=== PATIENT | female | born 1995 | race Caucasian/White ===

== ENCOUNTER 2017-10-09 05:26 | Inpatient (IN) | payer MEDICAID, OTHER ==
[2017-10-09] MEDS ORDERED: Carboprost Tromethamine 250 MCG/1 ML Amp IM PRN (06:13)
[2017-10-09] MEDS ORDERED: Water For Irrigation,Sterile 1,000 ML Container IRR PRN (06:13)
[2017-10-09] MEDS ORDERED: Sodium Chloride 0.9% 2.5 ML Syringe FLUSH PRN (06:13)
[2017-10-09] MEDS ORDERED: Butorphanol 1 MG/ML SDV IVPUSH PRN (06:13)
[2017-10-09] MEDS ORDERED: Nalbuphine 10 MG/1 ML Vial IVPUSH PRN (06:13)
[2017-10-09] MEDS ORDERED: Methylergonovine 0.2 MG/1 ML Amp IM PRN (06:13)
[2017-10-09] MEDS ORDERED: Lidocaine 1% 50 ML MDV INJECT PRN (06:13)
[2017-10-09] MEDS ORDERED: Misoprostol 200 MCG Tab PO PRN (06:13)
[2017-10-09] MEDS ORDERED: Ampicillin 2 GM in Sodium Chloride 0.9% 100 ML IV STA (06:13)
[2017-10-09] MEDS ORDERED: Sodium Chloride 0.9% 10 ML Syringe FLUSH PRN (06:13)
[2017-10-09] MEDS ORDERED: Lactated Ringers 1,000 ML IV SCH (06:15)
[2017-10-09] MEDS ORDERED: Oxytocin/0.9 % Sodium Chloride 30 UNIT/500 ML BAG IV SCH (06:15)
[2017-10-09] MEDS ORDERED: Ampicillin 2 GM AdvVial IV ONE (06:25)
[2017-10-09] MEDS ORDERED: Sodium Chloride 0.9% 100 ML ONE (06:25)
[2017-10-09] MEDS ORDERED: Ropivacaine HCl/PF 0 ML ONE (06:52)
[2017-10-09] MEDS ORDERED: Ropivacaine 0.2% 2 MG/ML 20 ML SDV ONE (06:52)
[2017-10-09] MEDS ORDERED: fentaNYL 100 MCG/2 ML SDV ONE (06:54)
[2017-10-09] MEDS ORDERED: Oxytocin/0.9 % Sodium Chloride 30 UNIT/500 ML BAG ONE (07:32)
[2017-10-09] MEDS ORDERED: Benzocaine/Menthol 20%-0.5% Spray 78 GM Cannister TOP PRN (08:01)
[2017-10-09] MEDS ORDERED: Acetaminophen 500 MG Tab PO PRN ×2 (08:01)
[2017-10-09] MEDS ORDERED: Lanolin 100% Cream 7 GM Tube TOP PRN (08:01)
[2017-10-09] MEDS ORDERED: Witch Hazel Medicated Pads 40/Jar TOP PRN (08:01)
[2017-10-09] MEDS ORDERED: Docusate Sodium 100 MG Cap PO PRN (08:01)
[2017-10-09] MEDS ORDERED: Ibuprofen 400 MG Tab PO PRN (08:01)
[2017-10-09] MEDS ORDERED: Bisacodyl 10 MG Supp RECTAL PRN (08:01)
--- NOTE | 2017-10-09 09:38 | OR ---
SURGEON: Michelle Euceda MD DATE OF PROCEDURE: 10/09/2017 PREOPERATIVE DIAGNOSES: 1. Intrauterine at 35 weeks and 1 day. 2. premature rupture of membranes. 3. labor. 4. GBS unknown. POSTOPERATIVE DIAGNOSIS: 1. Intrauterine at 35 weeks and 1 day. 2. premature rupture of membranes. 3. labor. 4. GBS unknown. 5. Delivered. PROCEDURE: Spontaneous vaginal delivery. ANESTHESIA: Epidural. ESTIMATED BLOOD LOSS: 100 mL. COMPLICATIONS: None. DISPOSITION: Mother and baby stable in Labor and Delivery room, [facility]. FINDINGS: Male infant, weight 2520 g, scores 9, and 9 at 1 and 5 minutes respectively. Grossly normal placenta with 3-vessel cord. Intact perineum. BRIEF HISTORY: Debbi is a 22-year-old G2, P1 who presents at 35 weeks and 1 day gestation at about 5:30 a.m. to Labor and Delivery with a history of leakage of clear fluid at 1:00 a.m. followed by irregular contractions an hour later. She reports that the contractions became regular about 2 hours afterwards with increased intensity and that she continued to leak clear fluid. She denied vaginal bleeding and reported movements. She was late to care at 32 weeks and also has insufficient care since NOB visit was the only visit she attended.On admission, she was confirmed to be grossly ruptured, aminta every 1-2 minutes, with a category 1 strip. She was 5 cm dilated, 80% effaced, and station -2 and requesting an epidural. She was admitted, received one dose of Ampicillin 2 g for GBS prophylaxis and the GBS swab was obtained. I reexamined her approximately an hour later, she was 6 cm dilated, 90% effaced, station -1, and leaking clear fluid, Cephalic presentation. She was set up for an epidural. After she receiving the epidural bolus dose, she started complaining of increased rectal pressure. She was re-examined and found to be fully dilated at station +3 and then was set up for delivery in modified dorsal lithotomy position. heart tracing remained category 1. DESCRIPTION OF PROCEDURE: She had a spontaneous vaginal delivery of a live male infant in direct occipital anterior position, loose nuchal cord x1, which was easily reduced. With clear fluid at delivery. Anterior and posterior shoulders were delivered without difficulty and the rest of the baby. Baby was vigorous and cried spontaneously at . Baby was delivered onto the maternal abdomen with the nursery nurse attending to the baby. Delayed cord clamping was performed and the cord was subsequently cut by the father of the baby. With delivery of the infant oxytocin infusion, titration was commenced for active management of 3rd stage of labor. Cord blood and gas samples were obtained. Placenta was delivered by controlled cord traction, appeared to be complete and intact. Examination of the perineum revealed no lacerations. Uterine massage was performed. Uterus was found to be well contracted and below the umbilicus. The patient tolerated the procedure well. Sponge, instrument, and needle counts were correct at the end of the delivery. ADUMVIV / MODL /[id number] MTDTiffani
[2017-10-09] MEDS: Ibuprofen 800 MG Tab PO PRN (21:07)
--- NOTE | 2017-10-10 09:00 | PCM.PNPP ---
- General Info Date of Service: 10/10/17 Functional Status: Reports: Pain Controlled, Tolerating Diet, Ambulating, Urinating - Review of Systems General: Denies: Fever, Weakness, Malaise, Chills HEENT: Denies: Headaches Pulmonary: Denies: Shortness of Breath, Cough Cardiovascular: Denies: Chest Pain, Palpitations Gastrointestinal: Denies: Abdominal Pain Genitourinary: Denies: Dysuria, Incontinence, Retention Musculoskeletal: Reports: No Symptoms Skin: Reports: No Symptoms Neurological: Reports: No Symptoms Psychiatric: Reports: No Symptoms - General Info Date of Service: 10/10/17 - Patient Data Vital Signs - Most Recent: Last Vital Signs Temp 36.4 C 10/10/17 02:45 Pulse 80 10/10/17 02:45 Resp 16 10/10/17 02:45 BP 106/54 L 10/10/17 02:45 Pulse Ox 98 10/10/17 02:45 Weight - Most Recent: 170 lb Lab Results - Last 24 Hours: Laboratory Results - last 24 hr 10/10/17 Range/Units 06:19 Hgb 11.3 L (12.0-16.0) g/dL Hct 35.2 L (36.0-46.0) % Med Orders - Current: Current Medications Acetaminophen (Tylenol Extra Strength) 500 mg PO Q4H PRN PRN Reason: Pain Acetaminophen (Tylenol Extra Strength) 1,000 mg PO Q4H PRN PRN Reason: Pain Benzocaine/Menthol (Dermoplast Pain Relief 20%-0.5% [place]) 78 gm TOP ASDIRECTED PRN PRN Reason: Perineal Comfort Measure Last Admin: 10/09/17 21:06 Dose: 1 canister Bisacodyl (Dulcolax) 10 mg RECTAL .ONCE PRN PRN Reason: Constipation Docusate Sodium (Colace) 100 mg PO BID PRN PRN Reason: Constipation Last Admin: 10/09/17 21:07 Dose: 100 mg Emollient Ointment (Lansinoh Hpa) 0 gm TOP ASDIRECTED PRN PRN Reason: Sore Nipples Last Admin: 10/09/17 21:07 Dose: 1 tube Ibuprofen (Motrin) 400 mg PO Q4H PRN PRN Reason: Pain Ibuprofen (Motrin) 800 mg PO Q6H PRN PRN Reason: Pain Last Admin: 10/09/17 21:07 Dose: 800 mg Witch Kari (Tucks) 1 pad TOP ASDIRECTED PRN PRN Reason: comfort care Discontinued Medications Ampicillin Sodium (Ampicillin) Confirm Administered Dose 2 gm IV .STK-MED ONE Stop: 10/09/17 06:26 Butorphanol Tartrate (Stadol) 1 mg IVPUSH Q1H PRN PRN Reason: Pain Carboprost Tromethamine (Hemabate Ds) 250 mcg IM ASDIRECTED PRN PRN Reason: Post Hemorrhage Fentanyl (Sublimaze) Confirm Administered Dose 300 mcg .ROUTE .STK-MED ONE Stop: 10/09/17 06:55 Ampicillin Sodium 2 gm/ Sodium (Chloride) 100 mls @ 200 mls/hr IV ONETIME STA Stop: 10/09/17 06:42 Last Admin: 10/09/17 06:31 Dose: 200 mls/hr Lactated Ringer's (Ringers, Lactated) 1,000 mls @ 150 mls/hr IV ASDIRECTED AVELINO Last Admin: 10/09/17 06:20 Dose: 999 mls/hr Oxytocin/Sodium Chloride (Oxytocin 30 Unit/500 Ml-Ns) 30 unit in 500 mls @ 500 mls/hr IV TITRATE AVELINO Sodium Chloride (Normal Saline) Confirm Administered Dose 100 mls @ as directed .ROUTE .STK-MED ONE Stop: 10/09/17 06:26 Ropivacaine (Naropin 0.2%) Confirm Administered Dose 0 mls @ as directed .ROUTE .STK-MED ONE Stop: 10/09/17 06:53 Oxytocin/Sodium Chloride (Oxytocin 30 Unit/500 Ml-Ns) Confirm Administered Dose 30 unit in 500 mls @ as directed .ROUTE .STK-MED ONE Stop: 10/09/17 07:33 Lidocaine HCl (Xylocaine 1%) 50 ml INJECT .ONCE PRN PRN Reason: Laceration repair Methylergonovine Maleate (Methergine) 0.2 mg IM ASDIRECTED PRN PRN Reason: Post Hemorrhage Misoprostol (Cytotec) 200 mcg PO .ONCE PRN PRN Reason: Post Hemorrhage Nalbuphine HCl (Nubain) 10 mg IVPUSH Q1H PRN PRN Reason: Pain (severe 7-10) Ropivacaine (Naropin 0.2%) Confirm Administered Dose 20 ml .ROUTE .STK-MED ONE Stop: 10/09/17 06:53 Sodium Chloride (Saline Flush) 10 ml FLUSH ASDIRECTED PRN PRN Reason: Keep Vein Open Sodium Chloride (Saline Flush) 2.5 ml FLUSH ASDIRECTED PRN PRN Reason: Keep Vein Open Sterile Water (Sterile Water For Irrigation) 1,000 ml IRR ASDIRECTED PRN PRN Reason: delivery - Infant Interaction Disposition, : to Nursery Feeding: Bottle Fed Support Person: Significant Other - Recovery Exam Fundal Tone: Firm Fundal Level: 3 Fingerbreadths Below Umbilicus Fundal Placement: Midline Lochia Amount: Scant Lochia Color: Rubra/Red Perineum Description: Intact, Minimal Bruising/Swelling Bladder Status: Voiding Urinary Elimination: Voided - Exam General: Alert, Oriented HEENT: Pupils Equal Lungs: Clear to Auscultation, Normal Respiratory Effort Cardiovascular: Regular Rate GI/Abdominal Exam: Normal Bowel Sounds, Soft, Non-Tender Extremities: Normal Inspection Skin: Warm Psy/Mental Status: Alert, Normal Affect, Normal Mood - Problem List & Annotations (1) delivery SNOMED Code(s): 195443109 Code(s): O60.10X0 - LABOR W DELIVERY, UNSP TRIMESTER, UNSP Status: Acute Current Visit: Yes (2) Normal vaginal delivery SNOMED Code(s): 95116295 Code(s): O80 - ENCOUNTER FOR FULL-TERM UNCOMPLICATED DELIVERY Status: Acute Current Visit: Yes - Problem List Review Problem List Initiated/Reviewed/Updated: Yes - My Orders Last 24 Hours: My Active Orders 10/09/17 08:01 Patient Status [ADT] Routine May Shower [RC] ASDIRECTED Up ad Lazara [RC] ASDIRECTED Vital Signs [RC] PER UNIT ROUTINE Acetaminophen [Tylenol Extra Strength] 1,000 mg PO Q4H PRN Acetaminophen [Tylenol Extra Strength] 500 mg PO Q4H PRN Benzocaine/Menthol [Dermoplast Pain Relief 20%-0.5% [place]] 78 gm TOP ASDIRECTED PRN Bisacodyl [Dulcolax] 10 mg RECTAL .ONCE PRN Docusate Sodium [Colace] 100 mg PO BID PRN Ibuprofen [Motrin] 400 mg PO Q4H PRN Ibuprofen [Motrin] 800 mg PO Q6H PRN Lanolin [Lansinoh HPA] See Dose Instructions TOP ASDIRECTED PRN Witch Kari [Tucks] 1 pad TOP ASDIRECTED PRN Assess Lochia [WOMSER] Per Unit Routine Assess Uterine Involution [WOMSER] Per Unit Routine Breast Pump [WOMSER] Per Unit Routine Peripheral IV Discontinue [OM.PC] Routine Resuscitation Status Routine 10/09/17 08:03 Perineal Care [OM.PC] Per Unit Routine - Assessment Assessment:: PPD#1, s/p vaginal delivery at 35.1 weeks, doing well. Baby is doing well and would be discharged today - Plan Plan:: Discharge instructions reviewed with patient Nothing in the vagina for 6 weeks Bleeding and infection precautions reviewed Continue PNV Tdap before discharge Follow up in 6 weeks
--- NOTE | 2017-10-10 12:33 | PCM48HPAN ---
Post Anesthesia Note - EVALUATION WITHIN 48HRS OF ANESTHETIC Vital Signs in Normal Range: Yes Patient Participated in Evaluation: Yes Respiratory Function Stable: Yes Airway Patent: Yes Cardiovascular Function Stable: Yes Hydration Status Stable: Yes Pain Control Satisfactory: Yes Nausea and Vomiting Control Satisfactory: Yes Mental Status Recovered: Yes
[2017-10-10] MEDS: Ibuprofen 800 MG Tab PO PRN (16:01)
[2017-10-10 17:24] VITALS: BP 113/63
== END 2017-10-10 20:15 | disposition home or self-care (01) | DRG 775 ==
LOC: MW.OBCHECK 05:26 → MW.OB 05:27 → MW.OBCHECK 06:20 → OBSVTOIN 07:30 → MW.OB 11:00
PROVIDERS: ADMIT Obstetrics & Gynecology; ATTEND Obstetrics & Gynecology
PROC: 10E0XZZ Delivery of Products of Conception, External Approach (ICD-10-PCS; principal; 2017-10-09)
DX: O42.013 Preterm premature rupture of membranes, onset of labor within 24 hours of rupture, third trimester (principal); O09.33 Supervision of pregnancy with insufficient antenatal care, third trimester; Z3A.35 35 weeks gestation of pregnancy; Z37.0 Single live birth
CPT/HCPCS: 01967; 36415; 59025; 59409; 80305; 81003; 84112; 85014; 85018; 85025; 86850; 86900; 86901; 87081; 87086; 88307; A9270-GY; J0290; J7030; J7120